=== PATIENT | male | born 1955 | race Two or more races ===

== ENCOUNTER 2023-05-09 14:18 | Inpatient (IN) | payer MEDICARE, MEDICAID ==
[~2023-05-09] VITALS: Ht 175.3 cm; Wt 126.0 kg
[2023-05-09 15:46] LABS: Basophils # (auto) 0 10 ^3/uL (0-0.2); Basophils % (auto) 0.7 % (0.0-2.0); Eosinophils # (auto) 0.4 10 ^3/uL (0-0.8); Lymphocytes # (auto) 0.8 10 ^3/uL (0.4-5.4); Lymphocytes % (auto) 16.2 % (10.0-50.0); Mean Corpuscular Volume 91.1 fL (80.0-100.0); Monocytes # (auto) 0.3 10 ^3/uL (0-1.3); Neutrophils # (auto) 3.3 10 ^3/uL (1.6-8.6); Nucleated Red Blood Cells % 0.1 %; White Blood Cell 4.8 10^3/uL (4.4-10.8)
[2023-05-09 15:48] LABS: Eosinophils % (auto) 8.4 % (0.0-7.0); Hematocrit 25.6 % (41.0-53.0); Hemoglobin 8.3 g/dL (13.5-17.5); Mean Corpuscular Hemoglobin 29.4 pg (28.0-32.0); Mean Corpuscular Hgb Conc. 32.3 g/dL (32.0-36.0); Monocytes % (auto) 6.3 % (0.0-12.0); Neutrophils % (auto) 68.4 % (37.0-80.0); Red Blood Cells 2.81 10^6/uL (4.5-5.90); Red Cell Distribution Width 17.5 % (11.8-14.3)
[2023-05-09 15:49] LABS: Alanine Aminotransferase 29 U/L (7-40); Albumin 3.4 g/dL (3.2-4.8); Alkaline Phosphatase 131 U/L (46-116); Anion Gap 6 (5-15); Aspartate Aminotransferase 58 U/L (13-40); BUN/Creatinine Ratio 12.7 (10.0-20.0); Blood Urea Nitrogen 10 mg/dL (9-23); Calcium 8.2 mg/dL (8.7-10.4); Carbon Dioxide 26 mmol/L (20-30); Chloride 102 mmol/L (98-107); Glucose 235 mg/dL (74-106); Potassium 4.2 mmol/L (3.5-5.1); Sodium 134 mmol/L (136-145); Uric Acid 3.8 mg/dL (3.7-9.2)
[2023-05-09 15:50] LABS: Bilirubin, Total 1.9 mg/dL (0.2-1.0); Total Protein 7.2 g/dL (5.7-8.2)
[2023-05-09 17:00] VITALS: RESP 18; O2SAT 93
[2023-05-09] MEDS ORDERED: DEXTROSE (50%) 50ML SYRG IV PRN (19:45)
[2023-05-09] MEDS ORDERED: NITROGLYCERIN 0.4 MG SL TAB SL PRN (19:45)
[2023-05-09] MEDS ORDERED: ONDANSETRON HCL 4 MG/2 ML VIAL IV PRN (19:45)
[2023-05-09] MEDS ORDERED: ACETAMINOPHEN 325 MG TAB PO PRN (19:45)
[2023-05-09] MEDS ORDERED: MORPHINE SULFATE INJ 2 MG/ml SYRG IV PRN (19:45)
[2023-05-09] MEDS ORDERED: LORazepam 2MG/ML-1ML VIAL IV PRN (21:00)
[2023-05-09 21:25] LABS: Triglycerides 79 mg/dL (< 150)
[2023-05-09 21:26] LABS: LDL Cholesterol 26 mg/dL (< 100)
[2023-05-09 21:27] LABS: Cholesterol 73 mg/dL (< 200); HDL Cholesterol 31 mg/dL (40-59)
[2023-05-09 21:40] VITALS: BP 151/70; PULSE 87; RESP 18; TEMP 98.1; O2SAT 93
[2023-05-09] MEDS ORDERED: ATORVASTATIN 20 MG TAB PO SCH (22:00)
[2023-05-09] MEDS ORDERED: ATORVASTATIN 20 MG TAB PO ONE (22:45)
[2023-05-09 23:06] VITALS: PULSE 91; RESP 20; O2SAT 94
[2023-05-09] MEDS: ACCU-CHEK COMFORT CURVE STRIP VI SCH (23:10)
[2023-05-09] MEDS: HYDROcodone-ACET 5/325MG TAB PO PRN (23:13)
[2023-05-09] MEDS: PANTOPRAZOLE 40 MG/10 ML VIAL INJ IV SCH (23:13)
[2023-05-09] MEDS: InsuLIN REG 1unit/0.01ml Soln (100units/ml) SC SCH (23:15)
[2023-05-10] VITALS (9 sets, daily range): BP systolic 109–143; BP diastolic 53–71; PULSE 91–102; RESP 17–20; TEMP 97.7–98.7; O2SAT 92–98
[2023-05-10] MEDS ORDERED: ALBU108A5 PO (06:25)
[2023-05-10] MEDS ORDERED: FLUO-259 PO (06:25)
[2023-05-10] MEDS ORDERED: ALLO300T2 PO (06:25)
[2023-05-10] MEDS ORDERED: CELE1CAP8 PO (06:25)
[2023-05-10] MEDS ORDERED: GABA-1250 PO (06:25)
[2023-05-10] MEDS ORDERED: MONT-8 PO (06:25)
[2023-05-10] MEDS ORDERED: TIZA-142 PO (06:25)
[2023-05-10] MEDS: HYDROcodone-ACET 5/325MG TAB PO PRN ×2 (07:00→21:13)
[2023-05-10] MEDS: ACCU-CHEK COMFORT CURVE STRIP VI SCH ×4 (07:01→21:13)
[2023-05-10] MEDS: InsuLIN REG 1unit/0.01ml Soln (100units/ml) SC SCH ×4 (07:02→21:14)
[2023-05-10] MEDS ORDERED: RIVA10TA2 PO (07:16)
[2023-05-10 08:00] LABS: Basophils # (auto) 0 10 ^3/uL (0-0.2); Basophils % (auto) 0.7 % (0.0-2.0); Eosinophils # (auto) 0.4 10 ^3/uL (0-0.8); Eosinophils % (auto) 8.1 % (0.0-7.0); Hematocrit 28.4 % (41.0-53.0); Lymphocytes % (auto) 18.9 % (10.0-50.0); Mean Corpuscular Hgb Conc. 31.5 g/dL (32.0-36.0); Mean Corpuscular Volume 91.8 fL (80.0-100.0); Monocytes # (auto) 0.4 10 ^3/uL (0-1.3); Monocytes % (auto) 6.8 % (0.0-12.0); Neutrophils # (auto) 3.6 10 ^3/uL (1.6-8.6); Neutrophils % (auto) 65.5 % (37.0-80.0); Red Cell Distribution Width 17.7 % (11.8-14.3); White Blood Cell 5.5 10^3/uL (4.4-10.8)
[2023-05-10 08:29] LABS: Alanine Aminotransferase 23 U/L (7-40); Albumin 3.5 g/dL (3.2-4.8); Alkaline Phosphatase 130 U/L (46-116); Anion Gap 7 (5-15); Aspartate Aminotransferase 56 U/L (13-40); BUN/Creatinine Ratio 12.2 (10.0-20.0); Bilirubin, Total 2.1 mg/dL (0.2-1.0); Blood Urea Nitrogen 12 mg/dL (9-23); Calcium 9.2 mg/dL (8.5-10.1); Carbon Dioxide 24 mmol/L (20-30); Chloride 106 mmol/L (98-107); Glucose 164 mg/dL (74-106); Potassium 3.9 mmol/L (3.5-5.1); Sodium 137 mmol/L (136-145); Total Protein 7.4 g/dL (5.7-8.2)
[2023-05-10] MEDS: ASPirin 81 mg TAB PO SCH (09:54)
[2023-05-10] MEDS: PANTOPRAZOLE 40 MG/10 ML VIAL INJ IV SCH ×2 (09:54→21:12)
[2023-05-10 17:31] LABS: % Iron Saturation 14.4 % (20-55)
[2023-05-10] MEDS: ATORVASTATIN 20 MG TAB PO SCH (21:12)
[2023-05-11] VITALS (7 sets, daily range): BP systolic 104–135; BP diastolic 37–57; PULSE 80–97; RESP 15–19; TEMP 97.8–98.2; O2SAT 92–99
[2023-05-11 06:16] LABS: Basophils # (auto) 0 10 ^3/uL (0-0.2); Basophils % (auto) 0.7 % (0.0-2.0); Eosinophils # (auto) 0.5 10 ^3/uL (0-0.8); Monocytes # (auto) 0.3 10 ^3/uL (0-1.3); Red Blood Cells 2.83 10^6/uL (4.5-5.90)
[2023-05-11 06:18] LABS: Eosinophils % (auto) 10.3 % (0.0-7.0); Hematocrit 25.7 % (41.0-53.0); Hemoglobin 8.3 g/dL (13.5-17.5); Lymphocytes % (auto) 21.7 % (10.0-50.0); Mean Corpuscular Hemoglobin 29.3 pg (28.0-32.0); Mean Corpuscular Hgb Conc. 32.3 g/dL (32.0-36.0); Mean Corpuscular Volume 90.6 fL (80.0-100.0); Monocytes % (auto) 6.1 % (0.0-12.0); Neutrophils # (auto) 2.8 10 ^3/uL (1.6-8.6); Neutrophils % (auto) 61.2 % (37.0-80.0); Red Cell Distribution Width 17.6 % (11.8-14.3); White Blood Cell 4.5 10^3/uL (4.4-10.8)
[2023-05-11] MEDS: ACCU-CHEK COMFORT CURVE STRIP VI SCH ×4 (06:32→21:53)
[2023-05-11] MEDS: InsuLIN REG 1unit/0.01ml Soln (100units/ml) SC SCH ×4 (06:34→21:54)
[2023-05-11 08:15] LABS: % Iron Saturation 21.7 % (20-55)
[2023-05-11] MEDS: ASPirin 81 mg TAB PO SCH (09:04)
[2023-05-11] MEDS: PANTOPRAZOLE 40 MG/10 ML VIAL INJ IV SCH ×2 (09:04→21:53)
[2023-05-11] MEDS: FERROUS SULFATE 325mg EC TAB PO SCH ×3 (09:04→17:43)
[2023-05-11 09:22] LABS: Alanine Aminotransferase 22 U/L (7-40); Albumin 3.3 g/dL (3.2-4.8); Alkaline Phosphatase 122 U/L (46-116); Anion Gap 5 (5-15); Aspartate Aminotransferase 54 U/L (13-40); BUN/Creatinine Ratio 11.7 (10.0-20.0); Blood Urea Nitrogen 12 mg/dL (9-23); Calcium 8.7 mg/dL (8.5-10.1); Carbon Dioxide 26 mmol/L (20-30); Chloride 105 mmol/L (98-107); Cholesterol 60 mg/dL (< 200); Glucose 192 mg/dL (74-106); HDL Cholesterol 24 mg/dL (40-59); LDL Cholesterol 20 mg/dL (< 100); Potassium 4.4 mmol/L (3.5-5.1); Sodium 136 mmol/L (136-145); Triglycerides 69 mg/dL (< 150)
[2023-05-11] MEDS ORDERED: IOHEXOL 350 MG/ML 100ML IJ ONE (11:38)
[2023-05-11] MEDS: HYDROcodone-ACET 5/325MG TAB PO PRN (20:43)
[2023-05-11] MEDS: ATORVASTATIN 20 MG TAB PO SCH (21:53)
[2023-05-12] VITALS (18 sets, daily range): BP systolic 108–139; BP diastolic 48–68; PULSE 66–92; RESP 15–19; TEMP 97.6–98.2; O2SAT 92–100
[2023-05-12] MEDS: ALBUTEROL SULF 2.5 MG/0.5ML(0.5%) NEB SOLN NEB PRN ×5 (00:57→22:08)
[2023-05-12 01:25] LABS: Amphetamine Screen, Urine Neg (NEGATIVE); Barbiturate Scree,Urine Neg (NEGATIVE); Benzodiazephine Screen, Urine Neg (NEGATIVE); Cannabinoid Screen, Urine Neg (NEGATIVE); Cocaine Screen, Urine Neg (NEGATIVE); Opiate Scree,Urine Neg (NEGATIVE); Phencyclidine Screen, Urine Neg (NEGATIVE)
[2023-05-12] MEDS: HYDROcodone-ACET 5/325MG TAB PO PRN ×3 (02:25→19:10)
[2023-05-12] MEDS: ACCU-CHEK COMFORT CURVE STRIP VI SCH ×4 (06:19→21:36)
[2023-05-12] MEDS: InsuLIN REG 1unit/0.01ml Soln (100units/ml) SC SCH ×4 (06:20→21:38)
[2023-05-12] MEDS: ASPirin 81 mg TAB PO SCH (09:25)
[2023-05-12] MEDS: PANTOPRAZOLE 40 MG/10 ML VIAL INJ IV SCH (09:25)
[2023-05-12] MEDS: FERROUS SULFATE 325mg EC TAB PO SCH ×3 (09:25→19:11)
[2023-05-12 09:49] LABS: Hepatitis B Core Total AB Negative (Negative)
[2023-05-12 11:20] LABS: Folate (Folic Acid) 17.88 ng/mL (>5.38)
[2023-05-12 15:11] LABS: Hepatitis A Total Antibody Positive (Negative); Hepatitis B Surface Antibody Negative (Negative); Hepatitis B Surface Antigen Negative (Negative); Hepatitis C Antibody Negative (Negative)
[2023-05-12] MEDS: ATORVASTATIN 20 MG TAB PO SCH (21:38)
[2023-05-13] VITALS (9 sets, daily range): BP systolic 100–116; BP diastolic 39–51; PULSE 73–87; RESP 15–22; TEMP 97.7–98.2; O2SAT 94–99
[2023-05-13] MEDS: HYDROcodone-ACET 5/325MG TAB PO PRN ×2 (00:38→05:33)
[2023-05-13] MEDS: ALBUTEROL SULF 2.5 MG/0.5ML(0.5%) NEB SOLN NEB PRN ×3 (02:12→13:29)
[2023-05-13] MEDS: ACCU-CHEK COMFORT CURVE STRIP VI SCH ×2 (06:47→12:29)
[2023-05-13] MEDS: InsuLIN REG 1unit/0.01ml Soln (100units/ml) SC SCH ×2 (06:48→12:39)
[2023-05-13] MEDS: FERROUS SULFATE 325mg EC TAB PO SCH ×2 (09:38→12:34)
[2023-05-13] MEDS: ASPirin 81 mg TAB PO SCH (09:38)
[2023-05-13] MEDS ORDERED: PANTOPRAZOLE 40 MG/10 ML VIAL INJ IV SCH (10:00)
== END 2023-05-13 16:30 | disposition home or self-care (01) | DRG 812 ==
LOC: ER 14:18 → EDBD 14:18 → TELE 19:41 → TELE-EAST 05-10 06:28
PROVIDERS: ADMIT Nurse Practitioner; ATTEND Nurse Practitioner
PROC: 5A09357 Assistance with Respiratory Ventilation, Less than 24 Consecutive Hours, Continuous Positive Airway Pressure (ICD-10-PCS; principal; 2023-05-10)
DX: D64.9 Anemia, unspecified (principal); Z68.41 Body mass index [BMI] 40.0-44.9, adult; E11.65 Type 2 diabetes mellitus with hyperglycemia; E66.01 Morbid (severe) obesity due to excess calories; G47.10 Hypersomnia, unspecified; G47.30 Sleep apnea, unspecified; G89.29 Other chronic pain; I11.9 Hypertensive heart disease without heart failure; M54.50 Low back pain, unspecified; R79.89 Other specified abnormal findings of blood chemistry; J44.9 Chronic obstructive pulmonary disease, unspecified; K43.9 Ventral hernia without obstruction or gangrene; I73.9 Peripheral vascular disease, unspecified; Z96.652 Presence of left artificial knee joint; M10.9 Gout, unspecified; F17.210 Nicotine dependence, cigarettes, uncomplicated; Z79.82 Long term (current) use of aspirin; Z79.899 Other long term (current) drug therapy; Z82.49 Family history of ischemic heart disease and other diseases of the circulatory system; Z83.3 Family history of diabetes mellitus; Z88.0 Allergy status to penicillin; Z91.199 Patient's noncompliance with other medical treatment and regimen due to unspecified reason
CPT/HCPCS: 36415; 70450; 72131; 73706; 76705; 80053; 80061; 80307; 82607; 82746; 82962; 83540; 83550; 84484; 84550; 85025; 86704; 86706; 86708; 86803; 87340; 93005; 93306; 93886; 93971; 94640; 94660; 97110; 97163; 97530; C9113; G0378; J1815